=== PATIENT | female | born 1945 | race Hispanic/Latino ===

== ENCOUNTER 2017-12-28 11:57 | Emergency (ER) | payer SELFPAY ==
[~2017-12-28] VITALS: Ht 157.5 cm; Wt 72.6 kg
[~2017-12-28 11:57] MED LIST: B12 PO; CIPRO250 MG PO; GLIMEPIRIDE4 MG PO; LEVOTHYROXINE50 MCG PO; METFORMIN HCL1000 MG PO
--- NOTE | 2017-12-28 13:11 | Diagnostic Imaging Report ---
EXAM: Ankle radiographs - three views INDICATION: Fall COMPARISON: None FINDINGS: No evidence of fracture or malalignment. The ankle mortise is preserved. There is soft tissue edema along the medial ankle. There is Achilles enthesopathy. There is a plantar calcaneal spur. IMPRESSION: No acute osseous abnormality. Soft tissue edema along the medial ankle. Signed by: Dr. Johann Cueto MD on 12/28/2017 1:08 PM
--- NOTE | 2017-12-28 13:14 | Diagnostic Imaging Report ---
EXAM: Ankle radiographs - two views; AP radiograph of the pelvis. INDICATION: Fall COMPARISON: None FINDINGS: No evidence of fracture, malalignment, or soft tissue abnormality. Mild degenerative changes are present in the left hip with joint space narrowing. AP radiograph of the pelvis demonstrates mild right hip, sacroiliac joint, and pubic symphysis degenerative changes. Bowel gas partially obscures visualization of the sacrum. Atherosclerotic vascular calcifications. IMPRESSION: No evidence of fracture or malalignment. Signed by: Dr. Johann Cueto MD on 12/28/2017 1:11 PM
--- NOTE | 2017-12-28 13:34 | Diagnostic Imaging Report ---
Right hand - three views COMPARISON: None FINDINGS: No evidence of fracture, malalignment, or soft tissue abnormality. Scattered mild degenerative changes with joint space narrowing including at the first carpometacarpal and interphalangeal joints. IMPRESSION: No evidence of fracture or malalignment. Signed by: Dr. Johann Cueto MD on 12/28/2017 1:30 PM
--- NOTE | 2017-12-28 13:46 | Diagnostic Imaging Report ---
Radiographs of the lumbar spine - 3 views HISTORY: Pain. Fall. COMPARISON: None available. FINDINGS: Bones: No acute displaced fracture. Osseous alignment is within normal limits. Joints: Mild scattered degenerative change. No osseous erosion. Soft tissues: Surgical clips in the right upper abdomen. IMPRESSION: Mild scattered degenerative change. No osseous erosion. Signed by: Dr. Larry Morales M.D. on 12/28/2017 1:43 PM
--- NOTE | 2017-12-28 13:47 | Diagnostic Imaging Report ---
Radiographs of the left knee - 3 views HISTORY: Pain. Fall. COMPARISON: None available. FINDINGS: Bones: No acute displaced fracture. Osseous alignment is within normal limits. Joints: Mild scattered degenerative change. No osseous erosion. Soft tissues: Mild soft tissue swelling. Suprapatellar effusion. IMPRESSION: Mild scattered degenerative change. No osseous erosion. Signed by: Dr. Larry Morales M.D. on 12/28/2017 1:44 PM
--- NOTE | 2017-12-28 14:57 | Diagnostic Imaging Report ---
Exams: Head and cervical spine CTs without IV contrast History: Trauma, fall Comparison studies: None Technique: Axial images were obtained from the brain and cervical spine. Coronal and sagittal images reconstructed from the axial data. Dose modulation, iterative reconstruction, and/or weight based adjustment of the mA/kV was utilized to reduce the radiation dose to as low as reasonably achievable. Intravenous contrast: None Findings: Head CT: Scalp: No abnormalities. Bones: No fractures, blastic or lytic lesions. Extra-axial spaces: No masses. No fluid collections. Brain sulci: Mildly prominent. Ventricles: Mild compensatory dilatation. No hydrocephalus. Parenchyma: No abnormal densities. No masses, acute hemorrhage, acute or chronic vascular insults. Sellar/suprasellar region: No abnormalities. Craniocervical junction: The foramen magnum is patent. No Chiari one malformation. Cervical spine CT: Fractures: None. Soft tissues: No gross abnormalities. Atlantoaxial articulation: Intact. Alignment: Strain cervical curvature may be positional. Minimal retrolisthesis of C5 on C6 is most likely degenerative. No other subluxations. Cervicomedullary junction: No abnormalities. The foramen magnum is patent. Vertebrae: No infection or neoplasm. Degenerative changes: Mild multilevel cervical disc degeneration, greatest at C5-C6. Minimal retrolisthesis of C5 on C6 with associated disc osteophyte complex and small disc osteophyte complexes C6-C7 indent the thecal sac and result in only mild canal stenosis. Multilevel uncovertebral facet arthrosis result in multilevel foraminal stenosis (mild right at C3-C4, mild left at C4-C5 moderate left and mild right at C5-C6). Incidental findings: Atherosclerotic calcifications in the carotid siphons. IMPRESSION: Head CT: 1. No acute abnormalities. 2. Mild generalized parenchymal volume. Cervical spine CT: 1. No cervical spine fracture or acute subluxation. 2. Multilevel degenerative changes as described. 3. Please note, cannot evaluate ligament, spinal cord and or vascular abnormalities on the basis of this examination. Signed by: Dr. Foreign Zavala M.D. on 12/28/2017 2:53 PM
--- NOTE | 2017-12-28 15:02 | Diagnostic Imaging Report ---
EXAM: Right wrist, three views INDICATION: Fall COMPARISON: None FINDINGS: No evidence of fracture, malalignment, or soft tissue abnormality. IMPRESSION: No acute osseous abnormality. Signed by: Dr. Johann Cueto MD on 12/28/2017 2:58 PM
== END 2017-12-28 15:50 | disposition home or self-care (01) ==
LOC: ER 11:57
DX: S70.02XA Contusion of left hip, initial encounter (principal); S80.02XA Contusion of left knee, initial encounter; S90.02XA Contusion of left ankle, initial encounter; S60.011A Contusion of right thumb without damage to nail, initial encounter; S60.211A Contusion of right wrist, initial encounter; S60.221A Contusion of right hand, initial encounter; W01.0XXA Fall on same level from slipping, tripping and stumbling without subsequent striking against object, initial encounter; Y93.01 Activity, walking, marching and hiking; Y92.512 Supermarket, store or market as the place of occurrence of the external cause
CPT/HCPCS: 70450; 72100; 72125; 99283

== ENCOUNTER 2022-01-08 01:45 | Emergency (ER) | payer MEDICARE, OTHER ==
[~2022-01-08] VITALS: Ht 157.5 cm; Wt 72.6 kg
[2022-01-08] MEDS ORDERED: ONDANSETRON HCL INJ 2MG/ML 2ML 2 MG/ML VIAL IV STA (02:41)
[2022-01-08] MEDS ORDERED: FAMOTIDINE 20 MG/2 ML VIAL IV STA (02:41)
[2022-01-08] MEDS ORDERED: SODIUM CHLORIDE FLUSH 10 ML SYR IV PRN (02:43)
[2022-01-08] MEDS ORDERED: SODIUM CHLORIDE 0.9% 1000ML 1,000 ML IV ONE (02:45)
[2022-01-08 02:48] LABS: BASOPHILS % 0.2 % (0.0-1.0); EOSINOPHILS # (AUTO) 0.1 (0.0-0.4); EOSINOPHILS % 1.4 % (0.0-6.0); HEMATOCRIT 41.8 % (34.2-44.1); HEMOGLOBIN 13.7 g/dL (12.0-16.0); LYMPHOCYTES # (AUTO) 1.4 (1.0-3.2); LYMPHOCYTES % 17.1 % (18.0-39.1); MEAN CORPUSCULAR HEMOGLOBIN 30.9 pg (28-32); MEAN CORPUSCULAR HGB CONC 32.8 g/dL (31-35); MEAN CORPUSCULAR VOLUME 94.1 fL (81-99); MONOCYTES # (AUTO) 0.4 (0.2-0.8); MONOCYTES % 4.5 % (4.4-11.3); NEUTROPHILS # (AUTO) 6.2 (2.1-6.9); NEUTROPHILS % 76.6 % (38.7-80.0); PLATELET COUNT 224 x10e3/uL (140-360); RED BLOOD COUNT 4.44 x10e6/uL (3.6-5.1); RED CELL DISTRIBUTION WIDTH 13.2 % (11.7-14.4)
[2022-01-08 02:52] LABS: INR 0.95; PROTHROMBIN TIME 13.6 seconds (11.9-14.5)
[2022-01-08 03:02] LABS: ALBUMIN 3.5 g/dL (3.5-5.0); ALBUMIN/GLOBULIN RATIO 0.9 (0.8-2.0); ANION GAP 12.4 mmol/L (8-16); CALCIUM 9.1 mg/dL (8.4-10.2); CREATININE, SERUM 0.68 mg/dL (0.57-1.11); POTASSIUM 3.4 mmol/L (3.5-5.1)
[2022-01-08 03:20] LABS: CLARITY,URINE SL CLOUDY (CLEAR); COLOR,URINE YELLOW (YELLOW); LEUKOCYTE ESTERASE ,URINE MODERATE (NEGATIVE)
[2022-01-08 03:21] LABS: BACTERIA,URINE MANY /HPF; KETONES,URINE NEGATIVE (NEGATIVE); NITRITE,URINE NEGATIVE (NEGATIVE); PROTEIN,URINE DIPSTICK 2+ (NEGATIVE); RBC,URINE 0-5 /HPF (0-5); URINE UROBILINOGEN 1 mg/dL (0.2 - 1); WBC,URINE (MAN) >50 /HPF (0-5)
[2022-01-08 03:22] LABS: EPITHELIAL CELLS,URINE MODERATE /LPF
[2022-01-08] MEDS ORDERED: ONDANSETRON ODT4 MG PO (04:56)
[2022-01-08] MEDS ORDERED: PEPCID20 MG PO (04:56)
[2022-01-08] MEDS ORDERED: CEFDINIR300 MG PO (04:56)
[2022-01-08] MEDS ORDERED: DICYCLOMINE HCL20 MG PO (04:56)
== END 2022-01-08 05:29 | disposition home or self-care (01) ==
LOC: ER 01:55
DX: R10.11 Right upper quadrant pain (principal); N39.0 Urinary tract infection, site not specified; K42.9 Umbilical hernia without obstruction or gangrene; E11.65 Type 2 diabetes mellitus with hyperglycemia; R11.0 Nausea
CPT/HCPCS: 36415; 71045; 74176; 80053; 81001; 83690; 84484; 85025; 85610; 85730; 93005; 99284; J2405; J7030